=== PATIENT | female | born 1985 | race Asian ===

== ENCOUNTER 2020-10-22 13:53 | Emergency (ER) | payer OTHER ==
[~2020-10-22] VITALS: Ht 165.1 cm; Wt 72.6 kg
[2020-10-22] MEDS ORDERED: PREDNISONE 5 MG5 MG PO (14:33)
[2020-10-22] MEDS ORDERED: PROTONIX40 M2 PO (14:34)
[2020-10-22] MEDS ORDERED: DESYREL150 MG PO (14:34)
[2020-10-22 14:51] LABS: ABSOLUTE NEUTROPHILS 3.9 thou/uL (1.4-8.2); BASOPHILS 0.6 % (0.0-2.0); EOSINOPHILS 0.4 % (0.0-3.0); HEMATOCRIT 28.8 % (37.0-47.0); HEMOGLOBIN 8.8 gm/dL (12.0-15.0); LYMPHOCYTES 18.1 % (24.0-44.0); MCH 21.4 pg (26.0-34.0); MCHC 30.7 g/dL (28.0-37.0); MCV 69.7 fL (80.0-100.0); MONOCYTES 8.6 % (1.0-8.0); PLATELET COUNT 447 thou/uL (150-400); POLYS 72.3 % (36.0-66.0); RBC 4.13 mil/uL (4.20-5.00); RDW 16.8 % (10.5-14.5); WBC 5.4 thou/uL (4.0-11.0)
[2020-10-22 15:17] LABS: ANION GAP 6 mmol/L (7-16); BUN 10 mg/dL (7-18); CALCIUM 9.1 mg/dL (8.5-10.1); CHLORIDE 105 mmol/L (98-107); CO2 26 mmol/L (21-32); CREATININE 0.8 mg/dL (0.6-1.0); GLUCOSE 78 mg/dL (74-106); POTASSIUM 3.7 mmol/L (3.5-5.1); SODIUM 137 mmol/L (136-145)
[2020-10-22 15:25] LABS: ALBUMIN 3.1 g/dL (3.4-5.0); LIPASE 199 U/L (73-393); SGOT 35 U/L (15-37); SGPT 28 U/L (14-59); TOTAL BILIRUBIN 0.4 mg/dL (0.2-1.0); TOTAL PROTEIN 8.1 g/dL (6.4-8.2); TROPONIN-I <0.06 ng/mL (<0.06)
[2020-10-22 15:52] LABS: ANISOCYTOSIS 1+; HYPOCHROMASIA 1+; MICROCYTES 1+
[2020-10-22] MEDS ORDERED: AZITHROMYCIN 2250 MG PO (17:39)
[2020-10-22 18:04] VITALS: BP 97/60
--- NOTE | 2020-10-23 07:16 | EKG ---
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 : 1985 Requested By: Sumit Slater Order Number: [id number] MD: Vincent Upton Measurements Intervals [place] Rate: 97 P: 50 DC: 161 QRS: 12 QRSD: 76 T: 26 QT: 353 QTc: 449 Interpretive Statements Sinus rhythm Probable left atrial enlargement Probable anteroseptal infarct, old No previous ECG available for comparison Electronically Signed On 10-23-2020 7:16:19 REGIONAL CLINICAL DIRECTOR by Vincent Upton [email or web address] <ELECTRONICALLY SIGNED> By: Vincent Upton MD, [facility] 10/23/20 0716 1355 1355 Vincent Upton MD, FACC /EPI
== END 2020-10-22 18:04 | disposition home or self-care (01) ==
LOC: ER 13:53
PROVIDERS: Emergency Medicine
DX: J18.9 Pneumonia, unspecified organism (principal); R07.9 Chest pain, unspecified; Z79.899 Other long term (current) drug therapy; K21.9 Gastro-esophageal reflux disease without esophagitis; Z86.73 Personal history of transient ischemic attack (TIA), and cerebral infarction without residual deficits; Z20.828 Contact with and (suspected) exposure to other viral communicable diseases